=== PATIENT | male | born 1995 | race Hispanic/Latino ===

== ENCOUNTER 2017-06-01 20:52 | Emergency (ER) | payer OTHER ==
[2017-06-01] MEDS ORDERED: Ketorolac Tromethamine 30 MG/ML VIAL ONE (21:37)
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
== END 2017-06-01 22:31 | disposition home or self-care (01) ==
LOC: ERS 20:52
DX: S60.052A Contusion of left little finger without damage to nail, initial encounter; S00.83XA Contusion of other part of head, initial encounter; S60.042A Contusion of left ring finger without damage to nail, initial encounter; V49.9XXA Car occupant (driver) (passenger) injured in unspecified traffic accident, initial encounter
CPT/HCPCS: 70486; 96372; J1885

== ENCOUNTER 2017-06-06 11:07 | Outpatient (CLI) | payer OTHER | END 2017-06-06 11:08 | disposition home or self-care (01) | LOC: BICRAD 11:07 | PROVIDERS: ATTEND Family Medicine | DX: M25.571 Pain in right ankle and joints of right foot (principal) ==

== ENCOUNTER 2019-12-28 15:33 | Outpatient (CLI) | payer OTHER ==
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
== END 2019-12-28 15:34 | disposition home or self-care (01) ==
LOC: BICRAD 15:33
PROVIDERS: ATTEND Family Medicine
DX: S93.401A Sprain of unspecified ligament of right ankle, initial encounter (principal); M79.89 Other specified soft tissue disorders